=== PATIENT | female | born 1990 | race Hispanic/Latino ===

== ENCOUNTER → 2018-02-15 | Day surgery (SDC) | payer SELFPAY ==
[2018-02-15 17:09] VITALS: BMI 31.9
--- NOTE | 2018-02-15 19:28 | PRG ---
DATE OF SERVICE: 02/15/2018 TIME OF SERVICE: 17:55 PRESENTING COMPLAINT: Lower abdominal pressure. HISTORY OF PRESENT ILLNESS: Ms. Seth is a 27-year-old primigravida at 37 weeks by stated EDC who received her antepartum care in [place]. No records are available from her [place] doctor. She pres ented to the [facility] complaining of pressure and slightly decreased move ment. She denies rupture of membranes. She denies vaginal bleeding. She reports an uncomplicated p regnancy. She was transferred to the [facility] secondary to not having OB services at the [facility]. OBSTETRICS AND GYNECOLOGIC HISTORY: Negative, primigravida. LABORATORY STUDIES: White count is 10,000, hematocrit is 37%. Urinalysis was unremarkable except fo r 1+ protein, but it was a clean catch specimen with multiple epithelial cells. PAST MEDICAL HISTORY: Denies. PAST SURGICAL HISTORY: Denies. ALLERGIES: Denies. MEDICATIONS: vitamins. SOCIAL HISTORY: Denies tobacco or drug use. REVIEW OF SYSTEMS: Noncontributory. PHYSICAL EXAMINATION: GENERAL: Black female in no acute distress. VITAL SIGNS: Blood pressure 133/78, pulse 85, respirations 18, temperature 98.6. HEENT: Within normal limits. LUNGS: Clear to auscultation bilaterally. HEART: Regular rhythm. BREASTS: No masses bilaterally. ABDOMEN: Soft, nontender, no rebound or guarding. Vulva without lesions. Vagina without discharge. Cervix closed, long, and high. Estimated weight 6 pounds. No CVA tenderness noted. Twenty minute monitoring strip revealed a reactive category 1 heart rate tracing without evidence of decels or other concerns. The patient reported movement. IMPRESSION: Discomforts of . No evidence of active labor. PLAN: Discharge home. ER precautions. The patient is to keep scheduled followup with her doctor in [place].
== END ==
LOC: L&D/OP 16:38
PROVIDERS: ATTEND Obstetrics & Gynecology
DX: O26.893 Other specified pregnancy related conditions, third trimester (principal); R10.30 Lower abdominal pain, unspecified; Z3A.37 37 weeks gestation of pregnancy

== ENCOUNTER 2018-10-20 10:24 | Day surgery (SDC) | payer OTHER, SELFPAY ==
[2018-10-20 11:12] VITALS: BMI 37.9
[2018-10-20] MEDS ORDERED: Ondansetron ODT 4 MG TAB PO PRN (11:33)
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
[2018-10-20 12:55] LABS: Bilirubin Small (Negative); Blood, Urine Negative (Negative); Clarity CLEAR (Clear); Glucose, Urine (Dipstick) Negative (Negative); Leukocyte Small (Negative); Nitrite Negative (Negative); Protein, Urine (Dipstick) 30 mg/dL (Neg-Trace); Specific Gravity, Urine 1.034 (1.002-1.036); Urobilinogen 0.2 mg/dL (0.2-1.0)
[2018-10-20 12:58] LABS: Bacteria/HPF None Seen HPF (None Seen); Hyaline Casts/LPF 4-6 HYALINE CAST LPF (0-3 Hyaline); Pathc Cast-AUWi Flag 0.68 (0-2.49)
[2018-10-20 13:36] LABS: Renal Epithelial None Seen HPF (0-3); Transitional Epithelial NONE SEEN HPF (0-3)
== END 2018-10-20 14:18 | disposition home or self-care (01) ==
LOC: L&D/OP 10:24 → ERS 10:24 → SDC 10:24 → EDSTATUS 10:43 → L&D/OP 14:18
PROVIDERS: ATTEND Student in an Organized Health Care Education/Training Program
DX: O99.612 Diseases of the digestive system complicating pregnancy, second trimester (principal); K52.9 Noninfective gastroenteritis and colitis, unspecified; O99.342 Other mental disorders complicating pregnancy, second trimester; F41.9 Anxiety disorder, unspecified; O34.219 Maternal care for unspecified type scar from previous cesarean delivery; Z3A.27 27 weeks gestation of pregnancy; Z90.89 Acquired absence of other organs
CPT/HCPCS: 81001; 87804; 99283; Q0162

== ENCOUNTER 2019-01-07 09:48 | Inpatient (IN) | payer OTHER ==
--- NOTE | 2019-01-07 09:47 | PDOC.FPROB ---
FMR OB H&P: HPI - History of Present Illness Chief Complaint: Scheduled C/S Indentification: 28 year old at 39.0 wks History of Present Illness: 28 year old at 39.0 wks by LMP/11.2 wk sono with JULIAN 01/14/2019 presents for scheduled rLTCS. Patient has short interval with last C/S in 2017. Op report from Ambrocio Bajwa states uncomplicated pLTCS at that time. Patient endorses occasional contractions. She denies vaginal bleeding, vaginal discharge , LoF. Patient endorses good movement. Primary Care Physician: EDILIA Garrison FMR OB H&P: Current - Care : 2 Para: 1001 Gestational age: 39.0 wks Due date: 01/14/2019 Dating Criteria: LMP/11.2 wk sono - OB Labs RH: positive Antibody Screen: negative HIV: negative RPR: negative HepBsAg: negative Rubella: immune Gonorrhea: negative Chlamydia: negative 1 hour gtt: wnl GBS: positive FMR OB H&P: History - Past Medical History PMH: Anxiety GERD - OB History OB History: Prior C/S at term Short interval Hx of HTN in prior - TAX APPRAISER History TAX APPRAISER History: Denies history of STD's or PID - Surgical History Sx History: pLTCS in 02/2018 - Social History Social History: Denies alcohol, tobacco, or drug use - Family History Family History: Insignificant FMR OB H&P: Medications - Current Home Medications: Medication Instructions Recorded Confirmed Type Vitamin 1 tablet PO DAILY 02/15/18 01/07/19 History Ondansetron [Zofran ODT] 4 mg PO Q6H PRN #30 tab 10/20/18 01/07/19 Rx Aspirin [Ecotrin] 81 mg PO DAILY 01/07/19 01/07/19 History Allergies/Adverse Reactions: Allergies Allergy/AdvReac Type Severity Reaction Status Date / Time No Known Allergies Allergy Verified 02/15/18 17:04 FMR OB H&P: ROS - Review of Systems General: denies: fever/chills Eyes: denies: vision changes ENT: denies: nasal congestion, rhinorrhea Cardiovascular: denies: palpitation, edema Respiratory: denies: cough, congestion, shortness of breath Gastrointestinal: denies: indigestion, nausea, vomiting Genitourinary (Female): denies: dysuria, vaginal pain, vaginal bleeding Musculoskeletal: denies: pain, stiffness, tenderness Neurologic: denies: numbness, weakness Integumentary: denies: rash, lesions Hematologic/Lymphatic: denies: prolonged or excessive bleeding Psychological: denies: depression, anxiety FMR OB H&P: Vital Signs - Maternal Vital signs: BP WNL Afebrile - Heart Tones Baseline: 130 Variability: moderate Acceleration: present Deceleration: absent Category: category 1 [place] contractions every: Irregular FMR OB H&P: Physical Exam - Physical Exam General: NAD, awake, alert and oriented HEENT: grossly normal vision Heart: RRR, no murmurs/rubs/gallops General: CTAB, no respiratory distress Abdomen: soft, non-tender Musculoskeletal: pulses present Neurological: no tremor, no focal deficit Skin: no rash, capillary refill <2 seconds Lymphatic: no unusual bruising or bleeding Psychiatric: intact recent and remote memory, good judgement and insight - Pelvic Exam Presentation: Cephalic FMR OB H&P: A/P - Problem List (1) Term Current Visit: Yes Status: Acute Code(s): Z34.90 - ENCNTR FOR SUPRVSN OF NORMAL , UNSP, UNSP TRIMESTER (2) Short interval between pregnancies affecting in third trimester, antepartum Current Visit: Yes Status: Acute Code(s): O09.893 - SUPERVISION OF OTHER HIGH RISK PREGNANCIES, THIRD TRIMESTER (3) GERD (gastroesophageal reflux disease) Current Visit: Yes Status: Acute Code(s): K21.9 - GASTRO-ESOPHAGEAL REFLUX DISEASE WITHOUT ESOPHAGITIS (4) Anxiety Current Visit: Yes Status: Acute Code(s): F41.9 - ANXIETY DISORDER, UNSPECIFIED Disposition: 28 year old at 39.0 wks by LMP/11.2 wk sono 1. Encounter for repeat C/S - 39.0 wks - Routine pre-operative management 2. Term 3. Hx of gHTN in prior - BP's well controlled during this - Patient taking daily ASA 4. GERD - On H2 tavo 5. Anxiety - Well controlled - Not requiring counseling or medication 6. Short interval - Last delivery 02/2018 was pLTCS - Repeat C/S today 7. Prior C/S - Encounter for repeat C/S today 8. GBS positive Discussion: Date/Time: 01/07/19 9300 This H&P was discussed with Dr. Up who agrees with the above documentation and plan. Signature: Karli Garrison, DO PGY-2
[2019-01-07] MEDS ORDERED: Promethazine HCl 25 MG/ML VIAL IM PRN ×3 (10:12→16:00)
[2019-01-07] MEDS ORDERED: Acetaminophen 500 MG TAB PO PRN (10:12)
[2019-01-07] MEDS ORDERED: Ondansetron PF 4 MG/2 ML Vial IVP PRN ×3 (10:12→16:00)
[2019-01-07] MEDS: Lactated Ringer's 1,000 ML IV SCH (10:12)
[2019-01-07] MEDS ORDERED: Bicitra 30 ML UDCUP PO SCH (10:12)
[2019-01-07] MEDS ORDERED: CEFAZOLIN 2 GM in Premix Bag 1 BAG IVPB SCH (10:30)
[2019-01-07 10:36] LABS: Hemoglobin 12.8 g/dL (12.0-16.0); Mean Corpuscular HGB CONC 34.1 g/dL (32.0-36.0); Mean Corpuscular Hemoglobin 29.2 pg (27.0-31.0); Mean Corpuscular Volume 85.7 fL (78.0-98.0); Mean Platelet Volume 7.9 fL (7.4-10.4); Platelet Count 319 thou/uL (130-400); RBC Distribution Width 12.6 % (11.5-14.5); Red Blood Cell (RBC) Count 4.39 mill/uL (4.20-5.40); White Blood Cell (WBC) Count 12.7 thou/uL (4.8-10.8)
[2019-01-07 11:15] LABS: HBSAg Index 0.25 S/CO (0-0.99); Hep B Surf Ag Non-Reactive S/CO (NonReactive); Syphilis Antibody Nonreactive (Nonreactive); Syphilis Antibody Index 0.03 S/CO (<1.00 Non-Reactive)
[2019-01-07 11:23] VITALS: BMI 37.1
[2019-01-07] MEDS ORDERED: Ondansetron PF 4 MG/2 ML Vial ONE ×2 (11:52→15:05)
[2019-01-07] MEDS ORDERED: Oxytocin 10 UNITS/ML VIAL ONE ×2 (11:52→12:43)
[2019-01-07] MEDS ORDERED: MORPHINE 5 MG/10 ML PF VIAL ONE (11:52)
[2019-01-07] MEDS ORDERED: Phenylephrine HCL 10 MG/ML VIAL ONE (11:53)
[2019-01-07] MEDS ORDERED: Naloxone HCl 0.4 mg/ml Vial IVP PRN ×2 (12:47)
[2019-01-07] MEDS ORDERED: Meperidine HCl/PF 25 MG/ML VIAL SLOW IVP PRN (12:47)
[2019-01-07] MEDS ORDERED: Promethazine HCl 25 MG SUPP PR PRN (12:47)
[2019-01-07] MEDS ORDERED: Naloxone HCl 0.4 mg/ml Vial IV PRN (12:47)
[2019-01-07] MEDS ORDERED: HYDROmorphone 2 MG/ML VIAL SLOW IVP PRN (12:47)
[2019-01-07] MEDS ORDERED: diphenhydrAMINE 50 MG/ML VIAL IVP PRN (12:47)
[2019-01-07] MEDS ORDERED: Ondansetron HCl/PF 4 MG/2 ML Vial IVP PRN (12:47)
[2019-01-07] MEDS ORDERED: L&D-Morphine 4 MG/ML VIAL SLOW IVP PRN (12:47)
[2019-01-07] MEDS ORDERED: Ketorolac Tromethamine 30 MG/ML VIAL IVP SCH (13:00)
[2019-01-07] MEDS ORDERED: Communication Order-Pharmacy FS SCH (13:00)
[2019-01-07] MEDS ORDERED: Fentanyl 100 MCG/2 ML VIAL ONE (13:24)
[2019-01-07] MEDS ORDERED: Ketorolac Tromethamine 30 MG/ML VIAL ONE (13:58)
[2019-01-07] MEDS: Ketorolac Tromethamine 30 MG/ML VIAL IVP PRN ×2 (14:00→19:30)
[2019-01-07] MEDS ORDERED: Meperidine HCl/PF 25 MG/ML VIAL ONE (14:23)
[2019-01-07] MEDS ORDERED: PHENYLEPHRINE-NS 100 MCG/ML 10 ML SYRINGE ONE (15:05)
[2019-01-07] MEDS ORDERED: Bisacodyl 10 MG SUPP PR PRN (16:00)
[2019-01-07] MEDS ORDERED: Lanolin Ointment 7 GM TUBE TOP PRN (16:00)
[2019-01-07] MEDS ORDERED: NS / Oxytocin 40 units/1000ml 1,000 ML IV SCH (16:00)
[2019-01-07] MEDS ORDERED: hydrALAZINE 20 MG/ML VIAL SLOW IVP PRN (16:00)
[2019-01-07] MEDS ORDERED: Adacel (T-DAP) 0.5 ML SYRINGE IM ONE (16:00)
[2019-01-07] MEDS ORDERED: diphenhydrAMINE 25 MG CAP PO PRN (16:00)
[2019-01-07] MEDS: Acetaminophen 325 MG TAB PO SCH (18:11)
[2019-01-07] MEDS ORDERED: diphenhydrAMINE 25 MG CAP ONE (21:30)
[2019-01-08] MEDS ORDERED: Ibuprofen 800 MG TAB ONE ×2 (06:06→08:58)
[2019-01-08] MEDS ORDERED: diphenhydrAMINE 25 MG CAP ONE (06:06)
[2019-01-08] MEDS: Acetaminophen 325 MG TAB PO SCH ×4 (09:58→19:52)
[2019-01-08] MEDS: Docusate Calcium (SURFAK) 240 MG CAP PO SCH ×2 (09:58→21:49)
[2019-01-08] MEDS: Prenatal Vitamin 1 TAB PO SCH (09:59)
[2019-01-08] MEDS: Lactated Ringer's 1,000 ML IV SCH ×4 (09:59→19:55)
--- NOTE | 2019-01-08 11:43 | OP ---
DATE OF PROCEDURE: 01/07/2019 RESIDENT SURGEON: Karli Garrison DO [employer] SURGEON: Carolina Arreaga DO ATTENDING SURGEON: Dr. Robert Up PROCEDURE PERFORMED: Repeat low-transverse section. PREOPERATIVE DIAGNOSES: 1. Term intrauterine . 2. Previous section. 3. Short interval. 4. Gastroesophageal reflux disease. 5. GBS positive. 6. Anxiety. 7. History of gestational hypertension in a prior . POSTOPERATIVE DIAGNOSES: 1. Term intrauterine , delivered. 2. Repeat low-transverse section. 3. Previous section. 4. Short interval. 5. Gastroesophageal reflux disease. 6. GBS positive. 7. Anxiety. 8. History of gestational hypertension in a prior . ANESTHESIA: Spinal. INDICATIONS: This is a 28-year-old, G2, P1-0-0-1 at 39 weeks who presented for repeat scheduled . PROCEDURE IN DETAIL: After risks, benefits, and alternatives were explained to the patient, she gave informed consent. Preoperative antibiotics included cefazolin 2 g IV. The patient was taken to the operating room and spinal anesthesia was initiated. She was placed in the supine position with a left tilt, and prepped and draped in the usual sterile fashion. An elliptical incision was made around the previous scar which was then excised entirely. A Pfannenstiel incision was then made and carried down to the level of the fascia utilizing a Bovie. The fascial cut was extended bilaterally with Barrios scissors. Inferior and superior edges of the cut fascial edges were elevated with Tamar clamps and underlying rectus muscles were sharply and bluntly dissected free. The recti were divided digitally and retracted manually. The peritoneum was entered bluntly and retracted manually. Bladder blade was placed. A low transverse score was made with a scalpel and the uterus was entered in the midline with the scalpel. Clear fluid was seen. The hysterotomy was extended manually. The infant was noted to be vertex and was easily delivered by fundal pressure. Mouth and nares were bulb suctioned. Cord was clamped and cut and grossly normal male infant was handed to the awaiting nurse. Cord blood was obtained. Placenta was spontaneously delivered and found to be intact with three-vessel cord and discarded. Uterus was externalized and endometrium was curetted with a dry lap. The bladder blade was replaced and the uterus was closed with a running locking #1 chromic suture. Following this, hemostasis was noted. The abdomen was examined post behind the uterus, which was suctioned free of clots. Uterus was then internalized and hysterotomy was again noted to be hemostatic. The peritoneum was closed with a 2-0 Vicryl suture. The fascia was then closed with a running nonlocking 0 Vicryl suture. The subcutaneous tissue was closed with 2-0 plain gut. The skin was approximated with alana and pressure dressing was placed. All counts were correct. The patient tolerated the procedure well and was taken to the recovery room in stable condition. ESTIMATED BLOOD LOSS: 305 mL. COMPLICATIONS: None. SPECIMENS: Cord blood sent to lab for blood type. FINDINGS: 1. Grossly normal male with Apgars of 8 and 9. 2. Grossly normal placenta with three-vessel cord discarded. DRAINS: [place] to gravity draining clear urine. Job ID: [id number]
[2019-01-08] MEDS: Ibuprofen 800 MG TAB PO SCH ×2 (13:01→21:49)
[2019-01-08] MEDS: HYDROcodone/Acetaminophen 5/325 mg Tablet PO PRN (13:01)
[2019-01-08 14:40] LABS: Hemoglobin 11.4 g/dL (12.0-16.0); Mean Corpuscular HGB CONC 33.7 g/dL (32.0-36.0); Mean Corpuscular Hemoglobin 29.6 pg (27.0-31.0); Mean Corpuscular Volume 87.7 fL (78.0-98.0); Mean Platelet Volume 7.3 fL (7.4-10.4); Platelet Count 256 thou/uL (130-400); RBC Distribution Width 12.8 % (11.5-14.5); Red Blood Cell (RBC) Count 3.86 mill/uL (4.20-5.40); White Blood Cell (WBC) Count 9.7 thou/uL (4.8-10.8)
[2019-01-08] MEDS: Simethicone Chewable 80 MG TAB PO PRN (20:00)
[2019-01-09] MEDS: HYDROcodone/Acetaminophen 5/325 mg Tablet PO PRN ×3 (05:00→18:48)
[2019-01-09] MEDS: Simethicone Chewable 80 MG TAB PO PRN ×3 (05:02→16:32)
[2019-01-09] MEDS: Ibuprofen 800 MG TAB PO SCH ×3 (06:35→22:14)
--- NOTE | 2019-01-09 07:04 | PDOC.PP ---
Post Progress Note Post Day #: 2 Subjective: Patient doing well. Passing flatus. Ambulating. Tolerating PO. PO intake tolerated: yes Flatus: yes Ambulation: yes Vital Signs (12 hours) Temp Pulse Resp BP Pulse Ox 01/09/19 05:03 98.7 F 89 16 133/65 100 01/09/19 00:52 80 18 121/67 98 01/08/19 19:47 98.0 F 97 16 115/69 98 Weight Weight 104.326 kg - Physical Examination General: NAD Cardiovascular: RRR Respiratory: clear to auscultation bilaterally, non-labored breathing Abdominal: + bowel sounds, lochia (WNL), no distention, appropriately TTP Skin: no rash Psychiatric: A&Ox3, normal affect Result Diagrams: 01/08/19 14:33 Additional Labs: Post Labs Blood Type A POSITIVE 01/07/19 10:53 Hep Bs Antigen Non-Reactive S/CO (NonReactive) 01/07/19 10:21 (1) Term Code(s): Z34.90 - ENCNTR FOR SUPRVSN OF NORMAL , UNSP, UNSP TRIMESTER Status: Acute (2) Short interval between pregnancies affecting in third trimester, antepartum Code(s): O09.893 - SUPERVISION OF OTHER HIGH RISK PREGNANCIES, THIRD TRIMESTER Status: Acute (3) GERD (gastroesophageal reflux disease) Code(s): K21.9 - GASTRO-ESOPHAGEAL REFLUX DISEASE WITHOUT ESOPHAGITIS Status: Acute (4) Anxiety Code(s): F41.9 - ANXIETY DISORDER, UNSPECIFIED Status: Acute - Assessment/Plan 28 year old at 39 wks delivered TAGA M infant via rLTCS on 01/07. Apgars 8/9. 1. Routine PP care - POD #2 - No significant overnight events - Tolerating PO - Ambulating - Will provide abdominal binder - Remove alana prior to d/c and replace with steristrips 2. GERD - Has not required medications 3. Anxiety - Well controlled Dispo: Plan for d/c home tomorrow. Addendum - Attending - Attending Attestation Date/Time: 01/09/19 9227 I personally evaluated the patient and discussed the management with Dr. Garrison I agree with the History, Examination, Assessment and Plan documented above with any addition or exceptions noted below- Patient without complaints. Ambulating/Voiding. Afebrile VSS. A/P: 1) POD#2 s/p repeat LCT C/S- continue routine care. H/H stable.
[2019-01-09] MEDS: Prenatal Vitamin 1 TAB PO SCH (09:13)
[2019-01-09] MEDS: Docusate Calcium (SURFAK) 240 MG CAP PO SCH ×2 (09:13→20:39)
[2019-01-09] MEDS: Acetaminophen 325 MG TAB PO SCH ×3 (10:19→16:18)
[2019-01-09] MEDS: Lactated Ringer's 1,000 ML IV SCH ×2 (16:17→22:25)
[2019-01-10] MEDS: HYDROcodone/Acetaminophen 5/325 mg Tablet PO PRN ×3 (00:13→12:47)
[2019-01-10] MEDS: Ibuprofen 800 MG TAB PO SCH ×2 (06:12→12:45)
[2019-01-10] MEDS: Lactated Ringer's 1,000 ML IV SCH (06:30)
--- NOTE | 2019-01-10 07:30 | PDOC.PP ---
Post Progress Note Post Day #: 3 Subjective: minimal pain with movement. no other concerns. PO intake tolerated: yes Flatus: yes Ambulation: yes Vital Signs (12 hours) Temp Pulse Resp BP Pulse Ox 01/10/19 06:10 98.0 F 72 20 120/72 99 01/10/19 00:10 97.7 F 80 20 111/61 98 01/09/19 20:35 98.3 F 84 20 127/66 98 Weight Weight 104.326 kg - Physical Examination General: NAD Cardiovascular: no m/r/g, RRR Respiratory: clear to auscultation bilaterally, non-labored breathing Abdominal: + bowel sounds, lochia, no distention, appropriately TTP Skin: CS incision dry & intact (alana removed steri strips applied.), no rash Neurological: no gross focal deficits Psychiatric: A&Ox3, normal affect Result Diagrams: 01/08/19 14:33 Additional Labs: Post Labs Blood Type A POSITIVE 01/07/19 10:53 Hep Bs Antigen Non-Reactive S/CO (NonReactive) 01/07/19 10:21 (1) Short interval between pregnancies affecting in third trimester, antepartum Code(s): O09.893 - SUPERVISION OF OTHER HIGH RISK PREGNANCIES, THIRD TRIMESTER Status: Acute (2) Term Code(s): Z34.90 - ENCNTR FOR SUPRVSN OF NORMAL , UNSP, UNSP TRIMESTER Status: Acute (3) Gestational hypertension affecting first Code(s): O13.9 - GESTATIONAL HTN W/O SIGNIFICANT PROTEINURIA, UNSP TRIMESTER Status: Acute - Assessment/Plan 1. Routine PP care - POD #3 - No significant overnight events - Tolerating PO - Ambulating - Will provide abdominal binder - Alana removed and steristrips applied. small amount of skin misalignment on left aspect of incision. Discussed signs/sx of infection with patient and spouse. 2. GERD - Has not required medications 3. Anxiety - Well controlled Dispo: Plan for d/c home today. Addendum - Attending - Attending Attestation Date/Time: 01/10/19 7727 I personally evaluated the patient and discussed the management with Dr. Lam I agree with the History, Examination, Assessment and Plan documented above with any addition or exceptions noted below- Patietn without complaints. Pain well controlled. Afebrile VSS. A/P: 1) POD#3 s/p R C/S- doing well. Plan to d/c home today,
[2019-01-10 08:17] VITALS: BP 141/75; TEMP 98.1
[2019-01-10] MEDS: Docusate Calcium (SURFAK) 240 MG CAP PO SCH (08:59)
[2019-01-10] MEDS: Prenatal Vitamin 1 TAB PO SCH (08:59)
== END 2019-01-10 14:10 | disposition home or self-care (01) | DRG 788 ==
LOC: L&D 09:48 → 3SE 16:00
PROVIDERS: ADMIT Family Medicine; ATTEND Family Medicine
PROC: 10D00Z1 Extraction of Products of Conception, Low, Open Approach (ICD-10-PCS; principal; 2019-01-07)
DX: O34.211 Maternal care for low transverse scar from previous cesarean delivery (principal); O99.344 Other mental disorders complicating childbirth; O99.824 Streptococcus B carrier state complicating childbirth; F41.9 Anxiety disorder, unspecified; O99.62 Diseases of the digestive system complicating childbirth; Z3A.39 39 weeks gestation of pregnancy; Z37.0 Single live birth; K21.9 Gastro-esophageal reflux disease without esophagitis
CPT/HCPCS: 36415; 51702; 85027; 86780; 86850; 86900; 86901; 87340; J0690; J1200; J1885; J2175; J2270; J2370; J2405; J2590; J3010; Q0163

== ENCOUNTER 2022-02-03 09:28 | Emergency (ER) | payer MEDICAID, SELFPAY ==
[2022-02-03] MEDS ORDERED: Ketorolac Tromethamine 30 MG/ML VIAL ONE (10:09)
== END 2022-02-03 10:30 | disposition home or self-care (01) ==
LOC: ERS 09:28
DX: K08.89 Other specified disorders of teeth and supporting structures (principal)
CPT/HCPCS: 96372; 99282; J1885